=== PATIENT | male | born 1975 | race African-American/Black ===

== ENCOUNTER 2018-11-22 17:13 | Inpatient (IN) | payer MEDICAID, OTHER ==
[~2018-11-22] VITALS: Ht 185.4 cm; Wt 70.8 kg
[2018-11-22 17:20] VITALS: Ht 185.4 cm; Wt 70.8 kg
--- NOTE | 2018-11-22 17:30 | NUR ---
PT BIBA FROM HOME. PER MEDIC "THE BROTHER WENT HOME FROM WORK AND SAW THE PATIENT DRUNK AND CALLED 911 BECAUSE HE WAS COMPLAINING OF CHEST PAIN... HE WAS AT [facility] YESTERDAY FOR THE SAME PROBLEM AND DISCHARGED BECAUSE THEY DIDN'T FIND ANYTHING." PT ARRIVED TO ED AWAKE AND ALERT WITH SLURRED SPEECH - PT STATED "I JUST HAD A FEW BEERS." PT BLINKING SLOWLY AND ANSWERING QUESTIONS SLOWLY; PT SPEAKS IN FULL SENTENCES OTHERWISE. PT USED URINAL BY SELF WITH MINIMAL ASSISTANCE BUT DROPPED URINAL TO THE FLOOR. PT IS ABLE TO SPECIFY WHERE HIS CHEST PAIN IS LOCATED - WHEN ASKED PT WHY HE DRANK, HE STATED "I JUST BURIED MY MOTHER AND MY BROTHER."
--- NOTE | 2018-11-22 17:37 | NUR ---
DR LANDIS AT BEDSIDE FOR MSE.
[2018-11-22 17:58] LABS: microscopic required? NO
[2018-11-22 18:06] LABS: UA SPECIFIC GRAVITY <=1.005 (1.005-1.035); urine erythrocyte NEGATIVE (NEGATIVE)
--- NOTE | 2018-11-22 18:16 | NUR ---
Daphne HEATON CALLED PHARMACY AND REQUESTED MVI BAG - AWAITING PHARMACY TO GIVE FLUID BAG
--- NOTE | 2018-11-22 18:18 | NUR ---
PORTABLE XR AT BEDSIDE
[2018-11-22 18:19] LABS: AMPHETAMINE QUAL UR NONE DETECTED (See below)
[2018-11-22 18:32] LABS: PLATELET COUNT 193 x10^3mcL (130-400)
[2018-11-22 18:34] LABS: RED CELL DISTRIBUTION WIDTH 15.5 % (11.5-14.5)
[2018-11-22 18:35] LABS: BASOPHIL % 0 % (0-2); CALCIUM 9.1 mg/dL (8.5-10.1); CARBON DIOXIDE 28.3 mmol/L (21-32); CHLORIDE SERUM 108 mmol/L (98-107); GFR1 > 60 mL/min; GLUCOSE SERUM 102 mg/dL (74-106); POTASSIUM SERUM 3.6 mmol/L (3.5-5.1); SODIUM SERUM 148 mmol/L (136-145)
[2018-11-22 18:47] LABS: ALBUMIN 4.1 g/dL (3.4-5.0); ALKALINE PHOSPHATASE 39 U/L (46-116); ALT/SGPT 66 U/L (16-63); AMYLASE 87 U/L (25-115); AST/SGOT 84 U/L (15-37); BILIRUBIN TOTAL 0.39 mg/dL (0.20-1.00); LIPASE 171 IU/L (73-393); MAGNESIUM 2.1 mg/dL (1.8-2.4); T4(THYROXINE) 4.7 ug/dL (4.7-13.3); TOTAL PROTEIN, SERUM 7.8 g/dL (6.4-8.2)
[2018-11-22 18:48] LABS: CHOLESTEROL 269 mg/dL (<200); HDL CHOLESTEROL 189 mg/dL (40-60)
--- NOTE | 2018-11-22 19:00 | NUR ---
DR LANDIS WAS INFORMED OF ETOH LEVEL AND PT REFUSING CHEWABLE ASPIRIN "BECAUSE OF MY NEW BRACES."
--- NOTE | 2018-11-22 19:17 | NUR ---
REPORT GIVEN TO PATRICIA MARTINO
--- NOTE | 2018-11-22 19:23 | NUR ---
REPORT RECEIVED FROM KOURTNEY MARTINO TO ASSUME CARE OF PT. PT IN POSITION OF COMFORT RESP E/U. PT SITTING UP AND GIVEN BLANKET. VSS. WILL CONTINUE TO MONITOR.
--- NOTE | 2018-11-22 20:24 | NUR ---
PT STS HE WASNT TO KEEP HIS RING, WATCH, EARINGS AND NECKLACE. PT CHANGED INTO GOWN AND SOCKS. PT INFORMED HE IS GOING TO BE ADMITTED. RESP E/U/ VSS. WILL CONTINUE TO [facility].
--- NOTE | 2018-11-22 21:09 | NUR ---
REPORT GIVEN TO DEWEY MARTINO TO ASSUME CARE OF PT.
[2018-11-22 21:29] VITALS: BP 113/82
--- NOTE | 2018-11-22 21:38 | NUR ---
RECEIVED PT FROM ER VIA GURNEY ACCOMPANIED WITH NURSE AND EMT, PT SEEN, ALERT AND ORIENTED X 4 WITH MILD SLURRED SPEECH, DENIES HEADACHE OR DIZZINESS, SZ PRECAUTION IN PLACE, BREATHING EVEN AND UNLABORED, LUNG SOUNDS CLEAR, ON ROOM AIR WITH SPO2:99%, NO RESP DISTRESS NOTED, ON TELE#9 NSR, DENIES CHEST PAIN, SL TO RFA, PULSES PALPABLE, NO EDEMA NOTED, GENERALIZED WEAKNESS, ABD SOFT WITH ACTIVE BS, NO BM AT THIS TIME, DENIES ANY PROBLEM WITH VOIDING, FALL PRECAUTION IN PLACE, BED ALARM ON, NO DISTRESS NOTED, WILL KEEP TO MONITOR.
--- NOTE | 2018-11-22 22:05 | NUR ---
RECIEVED PT FROM KRISTOPHER MARTINO IN NO ACUTE DISTRESS. AOX4 WITH MILD SLURRED SPEECH. SR ON TELE #9. DENIES CP. IV TO LFA, PATENT AND INFUSING. ORIENTED TO ROOM. BED IN LOWEST POSITION, 2 SIDE RAILS UP ,CALL LIGHT IN REACH. INSTRUCTED TO CALL FOR ASSISTANCE. BROTHER AT BEDSIDE.
[2018-11-23 05:56] VITALS: BP 107/62
--- NOTE | 2018-11-23 06:17 | NUR ---
PT C/O "SHAKING" AND ANXIETY, MEDICATED WITH ATIVAN IVP X1 WITH GOOD EFFECT. NO TREMORS CURRENTLY NOTED. NO ACUTE DISTRESS NOTED. WILL ENDORSE TO ONCOMING RN.
[2018-11-23 06:29] LABS: PLATELET COUNT 148 x10^3mcL (130-400)
[2018-11-23 06:55] LABS: CALCIUM 7.5 mg/dL (8.5-10.1); CARBON DIOXIDE 23.6 mmol/L (21-32); CHLORIDE SERUM 112 mmol/L (98-107); GFR1 > 60 mL/min; GLUCOSE SERUM 84 mg/dL (74-106); PHOSPHOROUS 3.3 mg/dL (2.5-4.9); POTASSIUM SERUM 3.8 mmol/L (3.5-5.1); SODIUM SERUM 149 mmol/L (136-145)
--- NOTE | 2018-11-23 07:20 | NUR ---
PT IS AAOX4. FOLLOWS COMMANDS, VERBALLY RESPONSIVE, CAN MAKE NEEDS KNOWN. RESP EVEN AND UNLABORED. LUNG SOUNDS CTA. ON R/A. NO COUGH NOTED. TELE [address] READING NSR. ABDOMEN SOFT, NONDISTENDED, NONTENDER, BOWEL SOUNDS ACTIVE X4 QUADS. DENIES N/V/D. SKIN CDI. PERIPHERAL PULSES PALPABLE. NO EDEMA NOTED. PT DENIES PAIN AND DISCOMFORT AT THIS TIME. SEIZURE PRECAUTIONS IN PLACE. CALL LIGHT WITHIN REACH. WILL CONTINUE TO MONITOR.
--- NOTE | 2018-11-23 07:55 | NUR ---
PT AGITATED AND REQUESTING RELIEF. ATIVAN 1MG IVP GIVEN. FLUIDS GIVEN TO PT. PT REPOSITIONED FOR COMFORT. CALL LIGHT WITHIN REACH. BED IN LOWEST POSITION. SEIZURE PRECATIONS IN PLACE.
[2018-11-23 09:32] VITALS: BP 114/63
[2018-11-23 09:56] LABS: BASOPHIL % 0 % (0-2)
--- NOTE | 2018-11-23 10:15 | NUR ---
ATIVAN 1 MG IVP GIVEN FOR AGITATION. RESP EVEN AND UNLABORED. NO RESP DISTRESS NOTED. CALL LIGHT WITHIN REACH.
--- NOTE | 2018-11-23 11:55 | NUR ---
ATIVAN 1MG GIVEN FOR AGITATION. RESP EVEN AND UNLABORED. NO RESP DISTRESS NOTED. CALL LIGTH WITHIN REACH.
[2018-11-23 12:37] VITALS: BP 112/78
--- NOTE | 2018-11-23 13:16 | NUR ---
DUE MEDS GIVEN AND TOLERATATED WELL. RESP EVEN AND UNLABORED. PT IS TAPPING IS FOOT AND MOVING AROUND IN BED UNABLE TO CALM HIMSELF. ATIVAN WILL BED GIVEN. PT DENIES PAIN AT THIS TIME. CALL LIGHT WITHIN REACH.
--- NOTE | 2018-11-23 13:30 | NUR ---
LIBRIUM 25 MG PO GIVEN. PT IS GROGGY AND CLAMMY AT THIS TIME. PT ASSISTED WITH DRINKING WATER. REFUSED MEAL AT BEDSIDE. BROTHER AT BEDSIDE. CALL LIGHT WITHIN REACH.
--- NOTE | 2018-11-23 15:36 | NUR ---
ZOFRAN 4MG IVP GIVEN FOR NAUSEA. ATIVAN 1MG IVP GIVEN FOR AGITATION. PT ASSISTED TO THE BATH ROOM AND BACK TO BED. AMBULATES WITH MINIMAL ASSIST. FULL WEIGHT BEARING. PT BACK IN BED. CALL LIGHT WITHIN REACH. WILL CONTINUE TO MONITOR.
[2018-11-23 16:19] VITALS: BP 108/66
--- NOTE | 2018-11-23 17:38 | NUR ---
PT RECEIVED ORDER TO TRANSFER TO MED/SURG. MADE DR. MARTIN AWARE THAT ETOH PROTOCOL PT'S REMAIN ON TELE AT LEAST 24 [address]RS [address]. MADE DR. MARTIN AWARE TWICE. DR. MARTIN STATED THAT IT'S AN OLD PROTOCOL AND PT ID OKAY TO REMAIN MED/SURG. KRISTOPHER, RN RESOURCE NURSE SPOKE TO DR. VERDUZCO AND REINFORCED THAT THE POLICY STILL STANDS. DR. VERDUZCO HAD THE PT REMAIN MED SURG PT. ANGELA TAMPING MACHINE OPERATOR MADE AWARE. ANGELA STATED THAT WE ARE TO KEEP PT ON TELEMONITOR UNTIL PT HAS BEEN IN HOSPITAL FOR 24 HOURS. WILL ENDORSE THIS INFORMATION TO [facility] SHIFT NURSE.
--- NOTE | 2018-11-23 18:29 | NUR ---
PT IS AAOX4. RESP EVEN AND UNLABORED. NO RESP DISTRESS NOTED. NO NAUSEA AT THIS TIME. PT FEELING AGITATED. WILL GIVE ATIVAN. PT DENIES PAIN. IVF RUNNING TO LFA, SITE PATENT AND WNL. NO S/S OF INFECTION OR INFILTRATION. CALL LIGHT WITHIN REACH. SEIZURE PRECAUTIONS IN PLACE. BED IN LOWEST POSTION. WILL ENDORSE ALL CARE TO NOC RN.
--- NOTE | 2018-11-23 18:44 | NUR ---
ATIVAN 1MG IVP GIVEN FOR AGITATION. PT ASSISTED WITH DINNER SET UP. REPOSITIONED FOR COMFORT. FLUIDS ENCOURAGED. CALL LIGHT WITHIN REACH.
--- NOTE | 2018-11-23 19:30 | NUR ---
RECEIVED PT FROM DAY SHIFT RN. PT AAOX4 DENIES HEADACHE OR DIZZINESS. BREATHING EVEN AND UNLABORED WITH NO SOB NOTED. PT DENIES ANY CHEST PAIN OR PRESSURE. ABD SOFT AND ROUND, ACTIVE BOWEL SOUNDS. DENIES ABD PAIN/N/V. PT AMBULATORY WITH BRP, GENERALIZED WEAKNESS. IV RFA PATENT, INFUSING WELL. NO SIGNS OF ACUTE DISTRESS NOTED. AT BEDSIDE. CALL BUTTON WITIN REACH. SAFETY/SEIZURE PRECAUTIONS IN PLACE. WILL CONTINUE TO MONITOR.
--- NOTE | 2018-11-23 19:42 | NUR ---
DR HUNTER MADE AWARE OF ETOH PROTOCOL AND KEEPING THE PATIENT ON TELE MONITOR. PER DR HUNTER TO KEEP PT OFF TELE.
--- NOTE | 2018-11-23 20:10 | NUR ---
PT REPORTS FEELING ANXIOUS AND RESTLESS. MEDICATED PER EMAR. CALL BUTTON WITHIN REACH. SAFETY PRECAUTIONS IN PLACE. AT BEDSIDE. WILL CONTINUE TO MONITOR.
[2018-11-23 20:45] VITALS: BP 93/53
--- NOTE | 2018-11-23 23:32 | NUR ---
PT REPORTED FEELING ANXIOUS. MEDICATED PER EMAR. WILL CONTINUE TO MONITOR.
--- NOTE | 2018-11-24 01:23 | NUR ---
PT RESTING, BREATHING EVEN AND UNLABORED WITH NO SOB NOTED. IV PATENT, INFUSING WELL. NO SIGNS OF DISTRESS. CALL BUTTON WITHIN REACH. SAFETY/SEIZURE PRECAUTIONS IN PLACE. WILL CONTINUE TO MONITOR.
--- NOTE | 2018-11-24 03:30 | NUR ---
PT RESTING. BREATHING EVEN AND UNLABORED. NO SIGNS OF DISTRESS NOTED. CALL BUTTON WITHIN REACH. SAFETY/SEIZURE PRECAUTIONS IN PLACE. WILL CONTINUE TO MONITOR.
[2018-11-24 05:42] VITALS: BP 107/57
--- NOTE | 2018-11-24 06:43 | NUR ---
PT REPORTED NAUSEOUS, MEDICATED PER EMAR.
--- NOTE | 2018-11-24 06:45 | NUR ---
PT SLEPT MOST OF THE NIGHT WITH NO SIGNS OF DISTRESS NOTED. IV PATENT, INFUSING WELL. MEDICATED PER EMAR. PT FEELING ANXIOUS AND RESTLESS THROUGHOUT THE NIGHT, MEDICATED PER EMAR WITH RELIEF. NO SIGNS ACUTE DISTRESS NOTED. CALL BUTTON WITHIN REACH. SAFETY PRECAUTIONS IN PLACE. WILL ENDORSE CARE TO DAY SHIFT RN.
[2018-11-24 07:07] LABS: CALCIUM 7.6 mg/dL (8.5-10.1); CARBON DIOXIDE 24.7 mmol/L (21-32); CHLORIDE SERUM 107 mmol/L (98-107); CREATININE SERUM 0.8 mg/dL (0.7-1.3); GFR1 > 60 mL/min; GLUCOSE SERUM 84 mg/dL (74-106); MAGNESIUM 1.6 mg/dL (1.8-2.4); PHOSPHOROUS 2.5 mg/dL (2.5-4.9); POTASSIUM SERUM 3.4 mmol/L (3.5-5.1); SODIUM SERUM 143 mmol/L (136-145)
--- NOTE | 2018-11-24 07:20 | NUR ---
PT IS AAOX4. DENIES H/A AND DIZZINESS. NORMAL S1S2 NOTED. RESP EVEN AND UNLABORED. LUNG SOUNDS CTA THROUGHOUT ALL LOBES. ON R/A. NO COUGH OR SOB NOTED. ABDOMEN SOFT, NONTENDER, NONDISTENDED. BOWEL SOUNDS ACTIVE X4 QUADS. DENIES N/V/D AT THIS TIME. SKIN CDI. NO EDEMA NOTED. PERIPHERAL PULSES PALPABLE. IVF RUNNING TO RH, SITE WNL. NO S/S OF INFECTION NOTED. PT ANXIOUS AND ASKING TO BE DISCHARGED FROM HOSPITAL AT THIS TIME. PT EDUCATED THAT THE DOCTORS WILL BE MAKING ROUNDS SOON AND HE CAN DISCUSS DISCHARGE AT THAT TIME. PT AGREED TO SPEAK WITH MD. CALL LIGHT WITHIN REACH. BED IN LOWEST POSITION.
--- NOTE | 2018-11-24 07:22 | NUR ---
PT AWAKE NO SIGNS OF DISTRESS NOTED. ENDORSED CARE TO DAY SHIFT RN, ALL QUESTIONS ADDRESSED.
[2018-11-24 07:51] VITALS: BP 117/75
[2018-11-24 08:15] LABS: BASOPHIL % 0.7 % (0-2)
[2018-11-24 08:19] LABS: PLATELET COUNT 118 x10^3mcL (130-400); RED CELL DISTRIBUTION WIDTH 15.5 % (11.5-14.5)
--- NOTE | 2018-11-24 09:08 | NUR ---
ATIVAN 1MG IVP GIVEN FOR FEELINGS OF ANXIOUSNESS. PT STATE HE DOES FEEL THOUGH HE IS IMPROVING. PT ENCOURAGED TO GET OUT OF BED AND SIT IN BEDSIDE CHAIR. PT VERBALIZED UNDERSTANDING. RESP EVEN AND UNLABORED. PT DENIES PAIN. DUE MEDS GIVEN AND TOLERATED WELL. CALL LIGHT WITHIN REACH. BED IN LOW POSITION.
[2018-11-24 10:46] VITALS: BP 117/75
--- NOTE | 2018-11-24 11:20 | NUR ---
ATIVAN 1 MG IVP GIVEN FOR ANXIETY. KLORCON 40MEQ PO GIVEN FOR K+= 3.4, MAG= 1.6 GIVEN FOR MAG= 1/6. RESP EVEN AND UNLABORED. PT DENIES PAIN AT THIS TIME. CALL LIGHT WITHIN REACH.
[2018-11-24] MEDS ORDERED: ATIVAN0.5 M1 PO (12:23)
--- NOTE | 2018-11-24 13:43 | NUR ---
PT DISCHARGED TO HOME IN NO DISTRESS. DISCHARGE INSTRUCTIONS REVIEWED, ALL FORMS SIGNED AND PLACED IN CHART. RX GIVEN TO PT. IV CATH TO RFA REMOVED INTACT. SITE WNL. COVERED WITH GAUZE AND BANDAID. VS: 97.5F, 68, 18, 117/75, 100% ON R/A. PT DENIES PAIN AND DISCOMFORT AT TIME OF DISCHARGE. ALL PERSONAL BELONGINGS TAKEN HOME WITH PT.
== END 2018-11-24 13:35 | disposition home or self-care (01) | DRG 313 ==
LOC: ED 17:13 → DU 20:35 → MU 11-23 13:24
PROVIDERS: Emergency Medicine; ADMIT Internal Medicine
DX: R07.89 Other chest pain (principal); M62.82 Rhabdomyolysis; I10 Essential (primary) hypertension; F17.210 Nicotine dependence, cigarettes, uncomplicated; I45.10 Unspecified right bundle-branch block; F10.129 Alcohol abuse with intoxication, unspecified; Y90.9 Presence of alcohol in blood, level not specified; F32.9 Major depressive disorder, single episode, unspecified; F41.9 Anxiety disorder, unspecified
CPT/HCPCS: 82962; 83880; G0378; G0480; J2060; J2405; J3475; J3490; J7030; Q0092

== ENCOUNTER 2018-12-06 09:50 | Emergency (ER) | payer MEDICAID ==
[~2018-12-06] VITALS: Ht 185.4 cm; Wt 68.0 kg
[~2018-12-06 09:50] MED LIST: ATIVAN0.5 M1 PO
[2018-12-06 10:16] VITALS: Ht 185.4 cm; Wt 68.0 kg
[2018-12-06 11:20] LABS: BASOPHIL % 1.6 % (0-2); PLATELET COUNT 196 x10^3mcL (130-400)
[2018-12-06 11:24] LABS: RED CELL DISTRIBUTION WIDTH 15.8 % (11.5-14.5)
[2018-12-06 11:28] LABS: CALCIUM 8.7 mg/dL (8.5-10.1); CHLORIDE SERUM 99 mmol/L (98-107); GFR1 > 60 mL/min; GLUCOSE SERUM 198 mg/dL (74-106); POTASSIUM SERUM 3.8 mmol/L (3.5-5.1); SODIUM SERUM 139 mmol/L (136-145)
[2018-12-06 11:33] LABS: ALKALINE PHOSPHATASE 49 U/L (46-116); ALT/SGPT 117 U/L (16-63); AST/SGOT 294 U/L (15-37); BILIRUBIN TOTAL 0.46 mg/dL (0.20-1.00); TOTAL PROTEIN, SERUM 7.6 g/dL (6.4-8.2)
[2018-12-06 11:37] LABS: CHOLESTEROL 267 mg/dL (<200)
[2018-12-06 12:03] LABS: HDL CHOLESTEROL 178 mg/dL (40-60)
[2018-12-06 13:16] LABS: AMPHETAMINE QUAL UR NONE DETECTED (See below)
[2018-12-06 14:45] VITALS: BP 132/85
== END 2018-12-06 14:45 | disposition home or self-care (01) ==
LOC: ED 09:50
PROVIDERS: Emergency Medicine
DX: R06.00 Dyspnea, unspecified (principal); R11.2 Nausea with vomiting, unspecified; R19.7 Diarrhea, unspecified; I10 Essential (primary) hypertension
CPT/HCPCS: 36600; 83880; J7030; Q0092; Q0162

== ENCOUNTER 2018-12-25 09:49 | Emergency (ER) | payer MEDICAID ==
[~2018-12-25] VITALS: Ht 185.4 cm; Wt 68.0 kg
[2018-12-25 09:54] VITALS: Ht 185.4 cm; Wt 68.0 kg
[2018-12-25 10:10] LABS: PLATELET COUNT 263 x10^3mcL (130-400)
[2018-12-25 10:13] LABS: CALCIUM 9.3 mg/dL (8.5-10.1); CARBON DIOXIDE 21.8 mmol/L (21-32); CHLORIDE SERUM 103 mmol/L (98-107); CREATININE SERUM 1.2 mg/dL (0.7-1.3); GFR1 > 60 mL/min; GLUCOSE SERUM 84 mg/dL (74-106); POTASSIUM SERUM 4.2 mmol/L (3.5-5.1); RED CELL DISTRIBUTION WIDTH 15.3 % (11.5-14.5); SODIUM SERUM 144 mmol/L (136-145)
[2018-12-25 10:18] LABS: ALBUMIN 3.9 g/dL (3.4-5.0); ALKALINE PHOSPHATASE 41 U/L (46-116); ALT/SGPT 59 U/L (16-63); AST/SGOT 94 U/L (15-37); BILIRUBIN TOTAL 0.5 mg/dL (0.20-1.00); TOTAL PROTEIN, SERUM 7.2 g/dL (6.4-8.2)
[2018-12-25 12:46] VITALS: BP 132/89
[2018-12-25 12:52] LABS: AMPHETAMINE QUAL UR NONE DETECTED (See below)
== END 2018-12-25 12:46 | disposition home or self-care (01) ==
LOC: ED 09:49
PROVIDERS: Specialist
DX: R07.89 Other chest pain (principal); I10 Essential (primary) hypertension
CPT/HCPCS: J1885; J7030; Q0092